=== PATIENT | female | born 1945 | race Caucasian/White ===

== ENCOUNTER → 2016-12-17 | Outpatient (CLI) | payer MEDICARE, MEDICAID | END | disposition home or self-care (01) | LOC: YCHH 12:48 | PROVIDERS: ATTEND Family Medicine | DX: D64.9 Anemia, unspecified (principal); I10 Essential (primary) hypertension ==

== ENCOUNTER → 2017-01-21 | Outpatient (CLI) | payer MEDICARE, MEDICAID | END | disposition home or self-care (01) | LOC: YCHH 13:02 | PROVIDERS: ATTEND Family Medicine | DX: D64.9 Anemia, unspecified (principal); E78.5 Hyperlipidemia, unspecified ==

== ENCOUNTER → 2017-07-08 | Outpatient (CLI) | payer MEDICARE, MEDICAID | END | disposition home or self-care (01) | LOC: YCHH 16:49 | PROVIDERS: ATTEND Family Medicine | DX: D64.9 Anemia, unspecified (principal); E53.8 Deficiency of other specified B group vitamins; E03.9 Hypothyroidism, unspecified; R79.89 Other specified abnormal findings of blood chemistry ==

== ENCOUNTER → 2018-06-08 | Outpatient (CLI) | payer MEDICARE, MEDICAID | LOC: BFHH 14:14 | PROVIDERS: ATTEND Family Medicine | DX: I10 Essential (primary) hypertension (principal); E03.9 Hypothyroidism, unspecified; D64.9 Anemia, unspecified ==